=== PATIENT | female | born 1945 | race Caucasian/White ===

== ENCOUNTER 2023-02-19 15:54 | Emergency (ER) | payer OTHER, MEDICARE, BC ==
[~2023-02-19] VITALS: Ht 162.6 cm; Wt 57.2 kg
[2023-02-19] MEDS ORDERED: OMEPRAZOLE20 MG PO (16:06)
[2023-02-19] MEDS ORDERED: HYDROCODON-ACE1 EA12 PO (16:06)
[2023-02-19] MEDS ORDERED: LISINOPRIL5 MG PO (16:06)
[2023-02-19 17:09] VITALS: BP 124/69
== END 2023-02-19 17:12 | disposition home or self-care (01) ==
LOC: ED 15:54
DX: S01.511A Laceration without foreign body of lip, initial encounter (principal); S80.02XA Contusion of left knee, initial encounter; W01.198A Fall on same level from slipping, tripping and stumbling with subsequent striking against other object, initial encounter; I10 Essential (primary) hypertension; Z79.899 Other long term (current) drug therapy
CPT/HCPCS: 12011; 73560; 99283-25